=== PATIENT | female | born 1990 | race Caucasian/White ===

== ENCOUNTER → 2022-12-03 | Outpatient (CLI) | payer BC ==
[2022-12-03 18:40] LABS: HCT 31.1 % (37.2-46.3); HGB 9.5 g/dL (12.0-15.0); MCH 26.7 pg (27.0-32.0); MCHC 30.5 g/dL (32.0-37.0); MCV 87.4 fL (80.0-97.0); Mean Platelet Volume 10.7 fL (9.5-12.2); NRBC Per 100 WBC 0 /100 WBCS (0.0-0.0); Platelet Count 268 X 10*3/uL (140-440); RBC 3.56 X 10*6/uL (4.10-5.20); RDW 12.8 % (11.5-14.5); WBC 5.19 X 10*3/uL (4.50-10.00)
== END | disposition home or self-care (01) ==
LOC: LABWHC1 12:49
PROVIDERS: ATTEND Obstetrics & Gynecology
DX: O03.9 Complete or unspecified spontaneous abortion without complication (principal); Z3A.00 Weeks of gestation of pregnancy not specified
CPT/HCPCS: 36415; 84702; 85027

== ENCOUNTER → 2022-12-11 | Outpatient (CLI) | payer BC ==
[2022-12-11 16:29] LABS: HCT 32.5 % (37.2-46.3); HGB 9.9 g/dL (12.0-15.0); MCH 25.8 pg (27.0-32.0); MCHC 30.5 g/dL (32.0-37.0); MCV 84.6 fL (80.0-97.0); Mean Platelet Volume 10.6 fL (9.5-12.2); NRBC Per 100 WBC 0 /100 WBCS (0.0-0.0); Platelet Count 305 X 10*3/uL (140-440); RBC 3.84 X 10*6/uL (4.10-5.20); RDW 13.2 % (11.5-14.5); WBC 6.33 X 10*3/uL (4.50-10.00)
== END | disposition home or self-care (01) ==
LOC: LABWHC1 12:00
PROVIDERS: ATTEND Obstetrics & Gynecology
DX: O03.9 Complete or unspecified spontaneous abortion without complication (principal)
CPT/HCPCS: 36415; 84702; 85027

== ENCOUNTER 2023-01-19 15:22 | Observation (INO) | payer BC ==
[2023-01-19] MEDS ORDERED: Rhogam IMMUNE GLOBULIN 1,500 UNIT/1 ML IM ONE (15:25)
[2023-01-19] MEDS ORDERED: SODIUM CHLORIDE 0.9% 1,000 ML IV ONE (15:26)
[2023-01-19 15:41] VITALS: RESP 16
--- NOTE | 2023-01-19 15:44 | ED ---
Abdominal Pain HPI - General Chief Complaint: Abdominal Pain Stated Complaint: Recheck Time Seen by Provider: 01/19/23 15:25 Source: patient Mode of arrival: ambulatory Limitations: no limitations - History of Present Illness Initial Comments: 32-year-old female who is , last menstrual cycle on December 21 who presents emergency Department with known ectopic . She was seen on Tuesday in her emergency department for right lower quadrant pain. Patient tested positive an ultrasound was performed which did not demonstrate an intrauterine . She was discharged home and instructed to follow-up in 48 hours for a repeat beta Quant level. He saw the [facility] in office today who repeated an ultrasound and confirmed an ectopic. Patient was transferred over to the hospital via private vehicle with instruction that she was getting go to the OR at 4 PM today. She states that her right lower quadrant pain is a mild ache at this time. Last oral intake was at 11 PM when she had a piece of pizza. She denies any ALLERGIES. No vomiting. Patient is known to be Rh-. Denies any bleeding. No other alleviating, car jockey modifying factors - Related Data Home Medications Medication Instructions Recorded Confirmed No Known Home Medications 01/19/23 01/19/23 Allergies Allergy/AdvReac Type Severity Reaction Status Date / Time No Known Allergies Allergy Verified 01/19/23 15:47 Review of Systems ROS Statement: Those systems with pertinent positive or pertinent negative responses have been documented in the HPI. ROS Other: All systems not noted in ROS Statement are negative. Past Medical History Past Medical History: No Reported History Additional Past Medical History / Comment(s): Patient reports 2 previous uncomplicated pregnancies, boy and a girl History of Any Multi-Drug Resistant Organisms: None Reported Past Surgical History: No Surgical Hx Reported Past Anesthesia/Blood Transfusion Reactions: No Reported Reaction Past Psychological History: No Psychological Hx Reported Smoking Status: Former smoker Past Alcohol Use History: None Reported Past Drug Use History: None Reported General Exam Limitations: no limitations General appearance: alert, in no apparent distress Head exam: Present: atraumatic, normocephalic, normal inspection Eye exam: Present: normal appearance, PERRL, EOMI. Absent: scleral icterus, conjunctival injection, periorbital swelling ENT exam: Present: normal exam, mucous membranes moist Neck exam: Present: normal inspection. Absent: tenderness, meningismus, lymphadenopathy Respiratory exam: Present: normal lung sounds bilaterally. Absent: respiratory distress, wheezes, rales, rhonchi, stridor Cardiovascular Exam: Present: regular rate, normal rhythm, normal heart sounds. Absent: systolic murmur, diastolic murmur, rubs, gallop, clicks GI/Abdominal exam: Present: soft, tenderness (Right lower quadrant - mild), normal bowel sounds. Absent: distended, guarding, rebound, rigid Extremities exam: Present: normal inspection, full ROM, normal capillary refill. Absent: tenderness, pedal edema, joint swelling, calf tenderness Back exam: Present: normal inspection Neurological exam: Present: alert, oriented X3, CN II-XII intact Psychiatric exam: Present: normal affect, normal mood Skin exam: Present: warm, dry, intact, normal color. Absent: rash Course Vital Signs 01/19/23 01/19/23 15:25 15:40 Temperature 98.3 F Pulse Rate 99 99 Respiratory 18 16 Rate Blood Pressure 121/83 125/74 O2 Sat by Pulse 100 98 Oximetry Medical Decision Making - Medical Decision Making Was pt. sent in by a medical professional or institution (, PA, RESIDENTIAL PROGRAM MANAGER, urgent care, hospital, or correction...) When possible be specific @ -Dr. Felix's office Did you speak to anyone other than the patient for history (EMS, parent, family, police, friend...)? What history was obtained from this source @ -Dr. Felix's office nurse Did you review nursing and triage notes (agree or disagree)? Why? @ -I reviewed and agree with nursing and triage notes Were old charts reviewed (outside hosp., previous admission, EMS record, old EKG, old radiological studies, urgent care reports/EKG's, correction records)? Report findings @ -Lab studies and ultrasound are reviewed from Tuesday Differential Diagnosis (chest pain, altered mental status, abdominal pain women, abdominal pain men, vaginal bleeding, weakness, fever, dyspnea, syncope, headache, dizziness, GI bleed, back pain, seizure, CVA, palpatations, mental health, musculoskeletal)? @ -Differential Abdominal Pain Women: Appendicitis, Cholecystitis, diverticulosis, ischemic bowel, pancreatitis, hepatitis, UTI, gastroenteritis, AAA, incarcerated hernia, bowel obstruction, constipation, inflammatory bowel, hepatitis, peptic ulcer disease, splenic infarction, perforated viscus, vulvitis, ovarian torsion, PID, kidney stone, placenta abruption, this is not meant to be an all-inclusive list EKG interpreted by me (3pts min.). @ -Not done X-rays interpreted by me (1pt min.). @ -None done CT interpreted by me (1pt min.). @ -None done U/S interpreted by me (1pt. min.). @ -None done What testing was considered but not performed or refused? (CT, X-rays, U/S, labs)? Why? @ -None What meds were considered but not given or refused? Why? @ -Pain medications however patient only has mild tenderness at this time Did you discuss the management of the patient with other professionals (professionals i.e. , PA, RESIDENTIAL PROGRAM MANAGER, lab, RT, psych nurse, social service manager, roof shingler, teacher, special skills officer, gearcase assembler)? Give summary @ -Dr. Felix is aware and sent the patient over Was smoking cessation discussed for >3mins.? @ -No Was critical care preformed (if so, how long)? @ -yes, 30 minutes Were there social determinants of health that impacted care today? How? (Homelessness, low income, unemployed, alcoholism, drug addiction, transportation, low edu. Level, literacy, decrease access to med. care, intermediate, rehab)? @ -No Was there de-escalation of care discussed even if they declined (Discuss DNR or withdrawal of care, Hospice)? DNR status @ -No What co-morbidities impacted this encounter? (DM, HTN, Smoking, COPD, CAD, Cancer, CVA, ARF, Chemo, Hep., AIDS, mental health diagnosis, sleep apnea, morbid obesity)? @ -None Was patient admitted / discharged? Hospital course, mention meds given and route, prescriptions, significant lab abnormalities, going to OR and other pertinent info. @ -Patient admitted to [facility] service for surgery Undiagnosed new problem with uncertain prognosis? @ -No Drug Therapy requiring intensive monitoring for toxicity (Heparin, Nitro, Insulin, Cardizem)? @ -No Were any procedures done? @ -No Diagnosis/symptom? @ -Acute right lower quadrant pain, acute ectopic , rh negative status Acute, or Chronic, or Acute on Chronic? @ -Acute Uncomplicated (without systemic symptoms) or Complicated (systemic symptoms)? @ -Complicated Side effects of treatment? @ -No Exacerbation, Progression, or Severe Exacerbation? @ -No Poses a threat to life or bodily function? How? (Chest pain, [place], [place], pneumonia, PE, COPD, DKA, ARF, appy, cholecystitis, CVA, Diverticulitis, Homicidal, Suicidal, threat to staff... and all critical care pts) @ -Yes Disposition Clinical Impression: RLQ abdominal pain, Ectopic Disposition: ADMITTED IP TO THIS [facility] Condition: Stable Is patient prescribed a controlled substance at d/c from ED?: No Referrals: Sarah Thompson DO [Primary Care Provider] - 1-2 days Time of Disposition: 15:44 Decision to Admit Reason: Admit from EC Decision Date: 01/19/23 Decision Time: 15:44
[2023-01-19 16:00] LABS: ALT 15 U/L (4-34); AST 21 U/L (14-36); African American GFR (CKD) >90 (>60 ml/min/1.73 sqM); Albumin 4.6 g/dL (3.5-5.0); Alkaline Phosphatase 72 U/L (38-126); Anion Gap 15 mmol/L; Blood Urea Nitrogen 13 mg/dL (7-17); Calcium 9.2 mg/dL (8.4-10.2); Carbon Dioxide 19 mmol/L (22-30); Chloride 106 mmol/L (98-107); Glucose 89 mg/dL (74-99); Non-African American GFR(CKD) >90 (>60 ml/min/1.73 sqM); Potassium 3.8 mmol/L (3.5-5.1); Sodium 140 mmol/L (137-145); Total Bilirubin 0.5 mg/dL (0.2-1.3); Total Protein 7.7 g/dL (6.3-8.2)
[2023-01-19] MEDS ORDERED: ONDANSETRON 4 MG/2 ML VIAL ONE (16:01)
[2023-01-19] MEDS ORDERED: SCOPOLAMINE 1 MG/72 HR PATCH TRANSDERM ONE (16:05)
[2023-01-19] MEDS ORDERED: fentaNYL (PF) 50 MCG/ML 2 ML AMP ONE (16:05)
[2023-01-19] MEDS ORDERED: NEOSTIGMINE 1 MG/ML 10 ML VIAL ONE (16:05)
[2023-01-19] MEDS ORDERED: GLYCOPYRROLATE 0.2 MG/ML 2 ML VIAL ONE (16:05)
[2023-01-19] MEDS ORDERED: PROPOFOL 10 MG/ML 20 ML VIAL IV ONE (16:05)
[2023-01-19] MEDS ORDERED: FAMOTIDINE 20 MG/2 ML VIAL IVP ONE (16:05)
[2023-01-19] MEDS ORDERED: LIDOCAINE 2% INJ 20 MG/ML (2 ML VIAL) ONE (16:05)
[2023-01-19] MEDS ORDERED: ROCURONIUM 10 MG/ML (5 ML VIAL) IV ONE (16:05)
[2023-01-19] MEDS ORDERED: ONDANSETRON 4 MG/2 ML VIAL IVP ONE (16:05)
[2023-01-19] MEDS ORDERED: HYDROmorphone (PF) 1 MG/ML ONE (16:05)
[2023-01-19] MEDS ORDERED: MIDAZOLAM 2 MG/2 ML VIAL ONE (16:05)
[2023-01-19] MEDS ORDERED: DEXAMETHASONE SOD PHOSPHATE 4 MG/ML 1 ML VIAL IVP ONE (16:05)
[2023-01-19] MEDS ORDERED: SUCCINYLCHOLINE CHLORIDE 200 MG/10 ML VIAL IV ONE (16:05)
[2023-01-19] MEDS ORDERED: IV FLUID CONTINUATION 1,000 ML IV ONE (16:07)
[2023-01-19] MEDS ORDERED: LACTATED RINGERS 1,000 ML IV ONE (16:33)
[2023-01-19] MEDS ORDERED: BUPIVACAINE (PF) 0.25% 30 ML VIAL SQ ONE ×2 (16:33)
[2023-01-19 16:35] LABS: Basophils % (A) 0 %; Eosinophils # (A) 0.1 k/uL (0-0.7); Eosinophils % (A) 1 %; HCT 31.8 % (34.0-46.0); HGB 9.9 gm/dL (11.4-16.0); Lymphocytes # (A) 1.8 k/uL (1.0-4.8); Lymphocytes % (A) 26 %; MCH 24.5 pg (25.0-35.0); MCHC 31.1 g/dL (31.0-37.0); MCV 78.8 fL (80.0-100.0); Monocytes # (A) 0.4 k/uL (0-1.0); Monocytes % (A) 5 %; Neutrophils # (A) 4.6 k/uL (1.3-7.7); Neutrophils % (A) 66 %; Platelet Count 286 k/uL (150-450); RBC 4.03 m/uL (3.80-5.40); RDW 15.4 % (11.5-15.5)
--- NOTE | 2023-01-19 17:06 | P.OP ---
Date of Procedure: 01/19/23 Preoperative Diagnosis: Ectopic with suspected rupture Postoperative Diagnosis: Ruptured Ectopic Procedure(s) Performed: Laparoscopic Right Salpingectomy, Removal of Tubal Ectopic , Evacuation of Hemoperitoneum Implants: None Anesthesia: VAN Surgeon: Kaia Last Estimated Blood Loss (ml): 200 IV fluids (ml): 400 Urine output (ml): 50 Pathology: other (right fallopian tube, ectopic ) Condition: stable Disposition: same day Indications for Procedure: This is a 32 year old at approximately 4 weeks and 1 day by last menstrual period who presented with abdominal pain and vaginal spotting. Beta-HCG today was approximately 2100. Ultrasound today showed no intrauterine and a 7cm complex right adnexal mass consistent with ectopic . No gestataional sac or pole identified. Hematosalpinx also noted. Moderate to large amount of fluid was seen in the pelvis. Given suspected rupturing ectopic , surgical management of ectopic was recommended to the patient. Risk of oophorectomy, laparotomy, infection, and bleeding discussed with the patient as well as damage to surrounding structures. All questions answered. The patient desires to proceed with surgery. Operative Findings: 200 cc of hemoperitoneum noted upon entering the abdomen. Uterus unremarkable. Right fallopian tube bleeding and enlarged with ectopic . Left fallopian tube within normal limits. Bilateral ovaries grossly unremarkable. Normal appearing liver on anatomic survey. Description of Procedure: Patient was taken to the OR with IV fluid running and pneumatic compression stockings on both legs. General anesthesia was obtained without difficulty. The patient was placed in the dorsal lithotomy position with Mian-type stirrups with knees bent at 30 degree angles. Examination under anesthesia revealed a normal-sized, anteverted uterus. The patient as prepared and draped. The bladder was emptied. A speculum was placed into the vagina. The anterior lip of the cervix was grasped with a single-toothed tenaculum. A uterine manipulator was introduced. A vertical skin incision was made at the umbilical fold. The Veress needle was introduced into the peritoneal cavity while manually elevated the abdomen at a straight angle without difficulty. A saline drop test was performed to validate intraperitoneal placement. The pneumoperitoneum was established with CO2 gas to a pressure of 15mmHg. A 5mm trocar was inserted into the abdomen under direct visualization. Intraabdominal placement was confirmed with the laparoscope. Right and left lower quadrant trocars were inserted into the abdomen under direct visualization. Intraabdominal survey revealed normal appearing liver, gallbladder, and spleen, and lack of any visceral or vascular injury. The pelvic anatomy was noted as above. The hemoperitoneum was evacuated with the suction device. The LigaSure was used to sequentially cauterize and cut the right fallopian tube from the fibriated end to the level of the right uterine cornua. The 5mm EndoCatch bag was used to contain the right fallopian tube containing the ectopic . This was removed from the right lower quadrant assist port. Excellent hemostasis was noted at the end of the procedure. The patient tolerated the procedure well. All instruments were nette dixie from the abdomen and vagina, and all counts were correct times two. The patient was taken to the recovery room in stable condition.
[2023-01-19 17:16] VITALS: TEMP 97.9
[2023-01-19 18:03] VITALS: BP 120/68; PULSE 76
== END 2023-01-19 18:20 | disposition home or self-care (01) ==
LOC: EC 15:22 → 1SOBS 15:44 → 4FBP 15:44 → 1SOBS 15:44 → EC 15:44 → UNDOADMOB 15:44 → EC 15:45 → OR 15:45
PROVIDERS: ADMIT Obstetrics & Gynecology; ATTEND Obstetrics & Gynecology
DX: O00.101 Right tubal pregnancy without intrauterine pregnancy (principal); Z87.891 Personal history of nicotine dependence
CPT/HCPCS: 99285; 86900; 86901; 88305; 80053; 85025; 86850; 86870; 86880; 59151; G0378; J2250; J0330; J1100; J2710; J2405; J3010; J1170; J2704; J2001

== ENCOUNTER → 2023-01-19 | Outpatient (CLI) | payer BC | END | disposition home or self-care (01) | LOC: LABWHC1 07:15 | PROVIDERS: ATTEND Obstetrics & Gynecology | DX: O20.0 Threatened abortion (principal); Z3A.00 Weeks of gestation of pregnancy not specified | CPT/HCPCS: 36415; 84702 ==

== ENCOUNTER → 2023-04-13 | Outpatient (CLI) | payer BC | END | disposition home or self-care (01) | LOC: LABWHC1 15:45 | PROVIDERS: ATTEND Obstetrics & Gynecology | DX: N92.5 Other specified irregular menstruation (principal) | CPT/HCPCS: 36415; 84702; 86850; 86870; 86880; 86900; 86901 ==

== ENCOUNTER → 2023-05-20 | Outpatient (CLI) | payer BC ==
[2023-05-20 20:04] LABS: HGB 11.3 d/dL (12.0-15.0); MCH 25.7 pg (27.0-32.0); MCHC 32.3 d/dL (32.0-37.0); MCV 79.7 FL (80.0-97.0); Mean Platelet Volume 10.6 FL (9.5-12.2); NRBC Per 100 WBC 0 X 10*3/uL (0.00-0.01); Platelet Count 237 X 10*3/uL (140-440); RBC 4.39 X 10*6/uL (4.10-5.20); RDW 19.9 % (11.5-14.5); WBC 7.27 X 10*3/uL (4.50-10.00)
[2023-05-20 20:05] LABS: Basophils # (A) 0.02 X 10*3/uL (0.00-0.10); Basophils % (A) 0.3 %; Eosinophils # (A) 0.06 X 10*3/uL (0.04-0.35); Eosinophils % (A) 0.8 %; Lymphocytes # (A) 1.42 X 10*3/uL (0.90-5.00); Lymphocytes % (A) 19.5 %; Monocytes # (A) 0.32 X 10*3/uL (0.20-1.00); Monocytes % (A) 4.4 %; Neutrophils # (A) 5.42 X 10*3/uL (1.80-7.70); Neutrophils % (A) 74.6 %
[2023-05-20 22:19] LABS: HIV 2 AB Non-Reactive (Non-Reactive); HIV AB P24 Non-Reactive (Non-Reactive); HIV P24 AG Non-Reactive (Non-Reactive)
== END | disposition home or self-care (01) ==
LOC: LABWHC1 13:24
PROVIDERS: ATTEND Obstetrics & Gynecology
DX: Z34.81 Encounter for supervision of other normal pregnancy, first trimester (principal)
CPT/HCPCS: 36415; 85025; 86762; 86780; 86850; 86900; 86901; 87340; 87390

== ENCOUNTER 2023-12-05 11:52 | Inpatient (IN) | payer BC ==
[2023-12-09] MEDS ORDERED: miSOPROStoL 200 MCG TAB PO PRN (06:15)
[2023-12-09] MEDS ORDERED: CARBOPROST TROMETHAMINE 250 MCG/ML 1 ML AMP IM PRN (06:15)
[2023-12-09] MEDS ORDERED: TERBUTALINE 1 MG/ML VIAL SQ PRN (06:15)
[2023-12-09] MEDS ORDERED: METHYLERGONOVINE 0.2 MG/ML 1 ML AMP IM PRN (06:15)
[2023-12-09] MEDS ORDERED: OXYTOCIN 10 UNIT/ML 1 ML VIAL IM PRN (06:15)
[2023-12-09] MEDS ORDERED: TRANEXAMIC 1,000 MG/100ML-NACL 1,000 MG in EMPTY BAG 1 BAG IV PRN (06:15)
[2023-12-09] MEDS ORDERED: LIDOCAINE 0.5% (PF) 5 MG/ML (50 ML SDV) SQ PRN (06:15)
[2023-12-09 06:31] VITALS: RESP 16
[2023-12-09] MEDS: LACTATED RINGERS 1,000 ML IV SCH (06:33)
[2023-12-09] MEDS: OXYTOCIN 30 UNITS/500 ML NS 30 UNIT in SALINE 1 500ML.BAG IV SCH (06:54)
--- NOTE | 2023-12-09 07:48 | P.HPOB ---
History of Present Illness H&P Date: 12/09/23 Chief Complaint: Induction of labor Ms. Alexandra is a 33 year old at 40 weeks and 6 days gestation with EDC of 12/03/2023 by LMP consistent with 7 week US who presents for induction of labor for post-dates. Her has been complicated by Rh negative status for which she received rhogam on 09/14/2023. The fetus is estimated at 40%ile for growth based on a 32 week US. Obstetric history: 2 FTVD, no cx, 1 SAB, 1 ectopic s/p right laparoscopic salpingectomy work-up: blood type A negative, antibody screen negative, rubella immune, VDRL non-reactive, HBsAg negative, HIV negative, gonorrhea negative, chlamydia negative, 1 hour GTT within normal limits, GBS negative. s/p flu vaccine and TDap. Past Medical History Past Medical History: No Reported History Additional Past Medical History / Comment(s): Patient reports 2 previous uncomplicated pregnancies, boy and a girl History of Any Multi-Drug Resistant Organisms: None Reported Past Surgical History: No Surgical Hx Reported Additional Past Surgical History / Comment(s): ectopic no right ovary Past Anesthesia/Blood Transfusion Reactions: Motion Sickness Past Psychological History: No Psychological Hx Reported Smoking Status: Never smoker Past Alcohol Use History: None Reported Past Drug Use History: None Reported Medications and Allergies Home Medications Medication Instructions Recorded Confirmed Type Vit No.179/Iron/Folic 1 tab PO DAILY 12/09/23 12/09/23 History [ Tablet] Allergies Allergy/AdvReac Type Severity Reaction Status Date / Time No Known Allergies Allergy Verified 12/09/23 06:15 Exam Vital Signs Temp Pulse Resp BP Pulse Ox 12/09/23 06:14 97.7 F 68 16 132/72 100 Intake and Output 12/08/23 12/09/23 12/09/23 22:59 06:59 14:59 Other: Weight 74.843 kg Focused physical exam is performed. This is a healthy-appearing in no apparent distress. Breathing is non-labored. Abdomen is gravid and non-tender. Cervical exam is 3 cm, 60 effacement, -2 station. AROM is undertaken with clear fluid noted. Extremities non-tender and non-edematous. heart tones are Category I and tocometer is graphing contractions every 2-4 minutes. Assessment and Plan Assessment: 31 year old at 40 weeks and 6 days presenting for IOL for post-dates Plan: Admit, clear liquid diet, pitocin per protocol, s/p AROM, continuous EFM and tocometer, epidural prn, close monitoring of patient. Anticipate vaginal delivery.
[2023-12-09 08:28] LABS: Basophils % (A) 1 %; Eosinophils # (A) 0.1 k/uL (0-0.7); Eosinophils % (A) 1 %; HCT 31.5 % (34.0-46.0); HGB 10.2 gm/dL (11.4-16.0); Hypochromasia Slight; Lymphocytes # (A) 2.2 k/uL (1.0-4.8); Lymphocytes % (A) 25 %; MCH 25.9 pg (25.0-35.0); MCHC 32.4 g/dL (31.0-37.0); Mean Platelet Volume 12.3; Monocytes # (A) 0.3 k/uL (0-1.0); Monocytes % (A) 4 %; Neutrophils # (A) 6.1 k/uL (1.3-7.7); Neutrophils % (A) 69 %; Platelet Count 170 k/uL (150-450); RBC 3.93 m/uL (3.80-5.40); RDW 14.7 % (11.5-15.5); WBC 8.8 k/uL (3.8-10.6)
[2023-12-09] MEDS ORDERED: fentaNYL (PF) 50 MCG/ML 5 ML AMP ONE (09:27)
[2023-12-09] MEDS ORDERED: SODIUM CHLORIDE 0.9% 250 ML BAG ONE (09:27)
[2023-12-09] MEDS ORDERED: ROPIVACAINE 5 MG/ML 30 ML VIAL ONE (09:27)
[2023-12-09 09:31] LABS: Large Platelets Present
[2023-12-09] MEDS ORDERED: SIMETHICONE 80 MG CHEWABLE PO PRN (11:53)
[2023-12-09] MEDS ORDERED: BENZOCAINE/MENTHOL SPRAY 1 GM/SPRAY AEROSOL TOPICAL PRN (11:53)
[2023-12-09] MEDS ORDERED: diphenhydrAMINE 25 MG CAP PO PRN (11:53)
[2023-12-09] MEDS ORDERED: diphenhydrAMINE 50 MG CAP PO PRN (11:53)
[2023-12-09] MEDS ORDERED: ACETAMINOPHEN TAB 325 MG TAB PO PRN (11:53)
[2023-12-09] MEDS ORDERED: IBUPROFEN 600 MG TAB PO PRN (11:53)
[2023-12-09] MEDS ORDERED: LANOLIN CREAM 1 GM TUBE TOPICAL PRN (11:53)
[2023-12-09] MEDS ORDERED: ZOLPIDEM 5 MG TAB PO PRN (11:53)
[2023-12-09] MEDS ORDERED: HYDROCORTISONE 2.5% RECTAL CREAM 30 GM TUBE RECTAL PRN (11:53)
[2023-12-09] MEDS ORDERED: diphenhydrAMINE 50 MG/ML 1 ML VIAL IVP PRN ×2 (11:53)
--- NOTE | 2023-12-09 11:53 | P.PROBDLV ---
Vaginal Delivery Note - . Vaginal Delivery Note: DATE OF SERVICE: 12/09/2023 PROCEDURE: Normal Vaginal Delivery ATTENDING: Dr. Kaia Last MD ESTIMATED BLOOD LOSS: 200 mL FINDINGS: VMI, Apgars 9/9. Weight 7 pounds and 8 ounces (3395 grams) PROCEDURE: Ms. Alexandra is a 33 year old at 40 weeks and 6 days presenting to labor and delivery for induction of labor for post-dates . The has been complicated by Rh negative status, for which the patient received rhogam at 28 weeks. For further details, please review the admitting H&P. Pitocin was titrated per protocol. AROM was undertaken at 739 revealing clear amniotic fluid. The patient received epidural anesthesia per her request. The patient was completely dilated at 1110. She had excellent expulsive efforts and a viable male infant was delivered at 1130. The head presented in direct occiput anterior presentation. One nuchal cord was reduced. Left shoulder was delivered anteriorly followed by the posterior shoulder and the remained of the infant. The infant was placed on the maternal abdomen and bulb suctioned. The infant was noted to be spontaneously crying. Cord was clamped and cut after a 30-second delay. The was handed off to the pediatric team. Placenta was delivered whole with gentle cord traction at 1133. Oxytocin was started to facilitate uterine tone. Uterine fundus was found to be firm and below the umbilicus upon fundal massage. Thorough examination of the cervix, vagina, periurethral area, and perineum revealed no lacerations. The patient is stable and allowed to begin the bonding process.
[2023-12-09] MEDS: SENNOSIDES-DOCUSATE SODIUM 1 EACH TAB PO SCH (20:32)
[2023-12-09] MEDS: Rhogam IMMUNE GLOBULIN 1,500 UNIT/1 ML IM ONE (20:33)
[2023-12-10 06:52] LABS: Basophils % (A) 0 %; Eosinophils # (A) 0.1 k/uL (0-0.7); Eosinophils % (A) 1 %; HCT 28.7 % (34.0-46.0); HGB 9.3 gm/dL (11.4-16.0); Lymphocytes # (A) 1.7 k/uL (1.0-4.8); Lymphocytes % (A) 16 %; MCH 25.6 pg (25.0-35.0); MCHC 32.2 g/dL (31.0-37.0); MCV 79.5 fL (80.0-100.0); Mean Platelet Volume 10.8; Monocytes # (A) 0.3 k/uL (0-1.0); Monocytes % (A) 3 %; Neutrophils % (A) 79 %; Platelet Count 152 k/uL (150-450); RBC 3.62 m/uL (3.80-5.40); RDW 14.6 % (11.5-15.5); WBC 10.1 k/uL (3.8-10.6)
--- NOTE | 2023-12-10 07:23 | P.DS ---
Providers Date of admission: 12/09/23 05:57 Expected date of discharge: 12/10/23 Attending physician: Kaia Last MD Primary care physician: Sarah Thompson [place] Hospital Course: Ms. Alexandra is a 33 year old now PPD#1 s/p normal vaginal delivery after induction of labor for post dates. Her delivery was uncomplicated. The patient is doing well this morning and had no acute events overnight. She has no complaints this morning. She reports minimal lochia, passing flatus, voiding without difficulty, ambulating, and eating/drinking without nausea or vomiting. doing well at bedside, s/p circumcision. She denies chest pain, shortness of breathing, fevers, or chills overnight. She denies pain or swelling in the legs. restrictions are reviewed with the patient including pelvic rest for 6 weeks. The patient is encouraged to call the office if she experiences any heavy bleeding, foul-smelling discharge, breast complaints, or any if she has any other concerns. She will follow up in the office with in 6 we eks for exam. All questions are answered. Assessment: 33 year old now PPD#1 s/p normal vaginal delivery Plan - Discharge Summary Discharge Rx Participant: No New Discharge Prescriptions: No Action Vit No.179/Iron/Folic [ Tablet] 1 tab PO DAILY Discharge Medication List Vit No.179/Iron/Folic [ Tablet] 1 tab PO DAILY 12/09/23 [History] Follow up Appointment(s)/Referral(s): Kaia Last MD [STAFF PHYSICIAN] - 6 Weeks Activity/Diet/Wound Care/Special Instructions: Instructions 1. Do not begin any exercise program for 3 weeks. 2. Do not resume sexual relations for 6 weeks or longer if uncomfortable. 3. You may take tub baths or showers at any time. 4. You may use tampons if desired after 6 weeks. 5. Keep any areas repaired with stitches clean and dry. 6. If you are not nursing, wear a good fitting, supportive bra during the day and limit fluid intake for at least 1 week to prevent breast engorgement. 7. Call the office, , within the next week to make appointment for your 6 week checkup if it has not already been made. 8. Report any of the following occurrences to the doctor promptly: a. Heavy, excessive bleeding b. Chills, fever c. Burning or frequency of urination d. Pain or redness and breasts if nursing e. Increasing pain or swelling of vulva (stitches). In addition to the above instructions, the following additional should be followed: 1. No heavy lifting or straining (exercising) until after 6 week checkup. 2. Keep abdominal incision clean and dry: You may wear a dressing if more comfortable. 3. Make office appointment for 2 weeks after delivery date. Discharge Disposition: HOME SELF-CARE
[2023-12-10 08:47] VITALS: BP 99/67; PULSE 72; TEMP 98.2
== END 2023-12-10 14:25 | disposition home or self-care (01) | DRG 807 ==
LOC: 4FBP 12-09 05:57
PROVIDERS: ADMIT Obstetrics & Gynecology; ATTEND Obstetrics & Gynecology
PROC: 10E0XZZ Delivery of Products of Conception, External Approach (ICD-10-PCS; principal; 2023-12-09)
PROC: 10907ZC Drainage of Amniotic Fluid, Therapeutic from Products of Conception, Via Natural or Artificial Opening (ICD-10-PCS; 2023-12-09)
PROC: 3E033VJ Introduction of Other Hormone into Peripheral Vein, Percutaneous Approach (ICD-10-PCS; 2023-12-09)
PROC: 3E0234Z Introduction of Serum, Toxoid and Vaccine into Muscle, Percutaneous Approach (ICD-10-PCS; 2023-12-09)
DX: O69.81X0 Labor and delivery complicated by cord around neck, without compression, not applicable or unspecified (principal); Z37.0 Single live birth; O26.893 Other specified pregnancy related conditions, third trimester; O48.0 Post-term pregnancy; Z3A.40 40 weeks gestation of pregnancy; Z67.91 Unspecified blood type, Rh negative
CPT/HCPCS: 85025; 86850; 86900; 86901